=== PATIENT | male | born 1940 | race Asian ===

== ENCOUNTER 2018-07-12 13:06 | Emergency (ER) | payer MEDICARE, MEDICAID ==
[~2018-07-12] VITALS: Ht 162.6 cm; Wt 72.6 kg
[~2018-07-12 13:06] MED LIST: ACETAMINOPHEN650 M2 ORAL; ARICEPT5 MG ORAL; ASPIRIN81 MG ORAL; ATORVASTATIN CA10 MG ORAL; CATAPRES0.1 MG ORAL; CLONIDINE HCL0.1 MG PO; NAMENDA5 MG ORAL; NKM; SEROQUEL50 MG ORAL
[2018-07-12 13:26] VITALS: BP 117/75
--- NOTE | 2018-07-12 13:26 | NUR ---
ED Nurse Note:pt. was BIBA from SNF s/p fall and left shoulder pain and fracture, VSS, pt. is A/Ox2, seen by ER MD, skin is intact, he can move his left arm
--- NOTE | 2018-07-12 14:35 | NUR ---
ED Nurse Note:left shoulder CT scan was done
--- NOTE | 2018-07-12 15:18 | Diagnostic Imaging Report ---
Indication: Pain, status post fall Technique: Noncontrast spiral acquisitions obtained through the left shoulder. Multiplanar reconstructions were generated. Total dose length product 259 mGycm. CTDIvol(s) 11 mGy. Radiation dose was minimized using automated exposure control Comparison: none Findings: No acute fractures. No dislocations. Joint spaces are preserved. There is a sizable inferior acromial spur incidentally noted. No evidence of significant soft tissue contusion or joint effusion. Some scarring is seen at the left lung apex. Impression: No acute process. Incidental findings as noted The CT scanner at [facility] is accredited by the [employer] and the scans are performed using protocols designed to limit radiation exposure to as low as reasonably achievable to attain images of sufficient resolution adequate for diagnostic evaluation.
[2018-07-12 15:31] VITALS: BP 120/74
[2018-07-12 16:17] VITALS: BP 120/74
--- NOTE | 2018-07-12 16:19 | NUR ---
ED Nurse Note:pt. was cleared for d/c back to SNF, facility was notified and report given to ambulance transpoter, pt. is stable for transfer back
--- NOTE | 2018-07-13 14:45 | Emergency Room Report ---
History of Present Illness General Chief Complaint: Upper Extremity Injury Source: EMS Present Illness HPI 78 yo M presents to ED for evaluation. brought in from SNF for L shoulder pain. referred by PMD to evaluate L shoulder. had xray done at facility which showed ? fracture. sent to get CT of shoulder to confirm. patient denies pain. has full ROM. denies pain. no other aggravating or relieving factors. denies any other associated symptoms. Allergies: Coded Allergies: NO KNOWN ALLERGIES (Unverified Allergy, Unknown, 02/05/15) Patient History Past Medical History: none Past Surgical History: none Pertinent Family History: none Social History: Denies: smoking, alcohol use, drug use Immunizations: UTD Reviewed Nursing Documentation: PMH: Agreed; PSxH: Agreed Nursing Documentation-PMH Past Medical History: No History, Except For Hx Cardiac Problems: No Hx Cancer: No Hx Gastrointestinal Problems: No Hx Neurological Problems: No Hx Cerebrovascular Accident: Yes Hx Concentration Difficulty: Yes Hx Speech Problem: Yes Review of Systems All Other Systems: negative except mentioned in HPI Physical Exam Vital Signs Date Time Temp Pulse Resp B/P (MAP) Pulse Ox O2 Delivery O2 Flow Rate FiO2 07/12/18 13:07 97.7 85 20 117/75 91 Room Air Sp02 EP Interpretation: reviewed, normal General Appearance: no apparent distress, alert, GCS 15, non-toxic Head: normocephalic, atraumatic Eyes: bilateral eye normal inspection, bilateral eye PERRL ENT: hearing grossly normal, normal pharynx, no angioedema, normal voice Neck: full range of motion, supple/symm/no masses Respiratory: chest non-tender, lungs clear, normal breath sounds, speaking full sentences Cardiovascular #1: regular rate, rhythm, no edema Cardiovascular #2: 2+ carotid (R), 2+ carotid (L), 2+ radial (R), 2+ radial (L) , 2+ dorsalis pedis (R), 2+ dorsalis pedis (L) Gastrointestinal: normal bowel sounds, non tender, soft, non-distended, no guarding, no rebound Rectal: deferred Genitourinary: normal inspection, no CVA tenderness Musculoskeletal: back normal, gait/station normal, normal range of motion, non- tender Neurologic: alert, oriented x3, responsive, motor strength/tone normal, sensory intact, speech normal Psychiatric: judgement/insight normal, memory normal, mood/affect normal, no suicidal/homicidal ideation Reflexes: 3+ bicep (R), 3+ bicep (L), 3+ tricep (R), 3+ tricep (L), 3+ knee (R) , 3+ knee (L) Skin: normal color, no rash, warm/dry, well hydrated Lymphatic: no adenopathy Procedures Splinting Splinting : Consent: Verbal Pre-Made Type: sling LUE Pre-Proc Neuro Vasc Exam: normal Post-Proc Neuro Vasc Exam: normal Patient Tolerated: Well Complications: None Medical Decision Making Diagnostic Impression: Primary Impression: Shoulder pain Qualified Codes: M25.512 - Pain in left shoulder ER Course Hospital Course 78 yo M presents for CT L shoulder. ? fracture on xray Differential diagnoses include: Fracture, dislocation, sprain, contusion Clinical course Patient placed on stretcher. After initial history and physical, I ordered CT L shoulder CT L shoulder shows no fx. discussed with PMD Dr Gunderson. patient has full ROM to L shoulder. moving without difficulty. can be safely discharged to home Diagnosis - shoulder pain Stable and discharged to SNF. apply ice, keep elevated. weight bear as tolerated. Followup with PMD/ortho. Return to ED if symptoms recur or worsen CT/MRI/US Diagnostic Results CT/MRI/US Diagnostic Results : Imaging Test Ordered: CT L shoulder Impression no acute process Last Vital Signs Date Time Temp Pulse Resp B/P (MAP) Pulse Ox O2 Delivery O2 Flow Rate FiO2 07/12/18 16:17 97.7 82 18 120/74 96 Room Air Status: improved Disposition: HOME, SELF-CARE Condition: Stable Patient Instructions: Shoulder Pain, [id number] Munir May MD Jul 13, 2018 14:45
== END 2018-07-12 16:31 ==
LOC: EDBD 13:06 → EMR 14:16
DX: M25.512 Pain in left shoulder (principal); Z86.73 Personal history of transient ischemic attack (TIA), and cerebral infarction without residual deficits
CPT/HCPCS: 99284